=== PATIENT | male | born 1955 | race Caucasian/White ===

== ENCOUNTER 2023-01-17 12:03 | Observation (INO) | payer MEDICARE, BC, SELFPAY ==
--- NOTE | 2022-12-22 12:40 | CASEMGMT ---
Received tc from Cheri from 's office regarding pt upcoming surgery and that he would like to go to [facility]. She states does want pt to have therapy. She states pt has [place] [employer] insurance, she is aware he will need a precert. Updated SW.
[2023-01-11 09:42] LABS: Absolute Lymphocyte Count 2.25 X10^3/uL (0.83-4.51); Absolute Neutrophil Count 4.4 X10^3/uL (2.0-7.7); Basophil# 0.02 X10^3/uL; Basophil% 0.3 % (0-1); Eosinophil# 0.13 X10^3/uL; Eosinophils% 1.7 % (0-5); Hematocrit 42.9 % (40-54); Hemoglobin 14.1 g/dL (13.0-16.5); Lymphocyte # 2.25 X10^3/ul (0.83-4.51); Lymphocyte % 29.8 % (19-41); Mean Corp Hgb Conc 32.9 g/dL (32-36); Mean Corpuscular Hgb 29.3 pg (27.0-32.0); Mean Platelet Vol. 9.7 fl (6.2-12.0); Monocyte# 0.78 X10^3/uL; Monocyte% 10.3 % (0-10); NRBC Flagged by Analyzer 0 % (0-5); Neutrophil # 4.36 X10^3/uL (2.7-7.7); Neutrophil % 57.6 % (47-70); Platelet Count 251 K/mm3 (150-450); RBC Distribution Width CV 14.1 % (11.6-14.6); RBC Distribution Width SD 45.7 fl (35.1-43.9); Red Blood Count 4.82 M/mm3 (4.6-6.2); White Blood Count 7.6 K/mm3 (4.4-11.0)
[2023-01-11 10:01] LABS: Anion Gap 6 (5-15); BUN 25 mg/dL (7-18); Chloride 107 mmol/L (98-107); Creatinine, Serum 0.76 mg/dL (0.70-1.30); EST Glomerular Filtration Rate 109 mL/min (>60); Est Glom Filt Rate - Afr Amer 132 mL/min (>60); Glucose 94 mg/dL (74-106); Potassium 4.1 mmol/L (3.5-5.1); Sodium Level 139 mmol/L (136-145)
[2023-01-11 10:08] LABS: Magnesium 2.2 mg/dL (1.6-2.6)
[2023-01-11 10:41] LABS: HIV - WCH Non-Reactive (Nonreactive); Hepatitis B Surface Antibody Non-Reactive; Hepatitis C Antibody Non-Reactive (Nonreactive)
[2023-01-13 18:53] LABS: Hepatitis A AB, Total Negative (Negative)
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
[2023-01-17] VITALS (14 sets, daily range): BP systolic 105–139; BP diastolic 55–84; PULSE 67–81; RESP 16–20; TEMP 35.9–36.6; O2SAT 96–99; BMI 36.2
--- NOTE | 2023-01-17 06:30 | RAD_ITS ---
STUDY: X-RAY - LUMBAR SPINE REASON FOR EXAM: Male, 67 years old. LAMINECTOMY DECOMPRESSION L2-3,L3-4,L4-5 TECHNIQUE: 1 view(s) of the lumbar spine were obtained. COMPARISON: None FINDINGS: A single lateral view was obtained. The localization instrument is seen posterior to the L4-L5 disc space level. RAD/Spine 1 View Any Level IMPRESSION: The localization instrument is seen posterior to the L4-L5 disc space level. Electronically Signed: Zack Peña MD at 15:14 EST ,
[2023-01-17] MEDS: Magnesium 1 GM over 15 mins IV (06:38)
[2023-01-17] MEDS: Lactated Ringers 1,000 ML 15 ML IV (06:39)
[2023-01-17] MEDS: Acetaminophen 500 MG Tablet 1000 MG PO (06:40)
[2023-01-17 07:00] LABS: Bedside Glucose 83 mg/dL (74-106)
[2023-01-17] MEDS: Cefazolin 2 GM in 0.9% Normal Saline 100 ML IV (07:41)
[2023-01-17] MEDS: THROMBIN (RECOMBINANT) 20,000 UNIT VIAL 20000 UNIT TOPICAL ×2 (08:38→10:00)
--- NOTE | 2023-01-17 12:08 | PCM.OPRPT ---
Report of Operation Description of Surgical Findings:: Preoperative diagnosis: Severe spinal stenosis at L4-5, L3-4, and L2-3 Postoperative diagnosis: The same Procedure: #1 lumbar laminectomy decompression L4-5 CPT code 33979 #2 lumbar laminectomy decompression L3-4 CPT code 41491/51 #3 lumbar laminectomy decompression L2-3 CPT code 81609/51 Surgeon: Dr. Guy [employer] Supervisor: [facility] Anesthesia: General endotracheal administered by [facility] EBL: 400 cc Drains: Medium Hemovac Complications: None Procedure: Patient was taken to the OR where he was placed under general endotracheal anesthesia. A a Wheeler catheter was inserted. Neuro monitoring placed her leads on the patient. The patient was then placed on the prone position on the Josep frame. Care was taken to protect his bony prominences his genitalia the ulnar nerves at both elbows the brachial plexus bilaterally facial features and cervical spine. The back was then prepped and draped in standard fashion. I then made a longitudinal incision centered over the L4-5 area. Subcutaneous tissues were incised length of the skin incision. Note that he had a lot of adipose tissue between the skin and the lumbar fascia. I then opened the lumbar fascia to the left of the spinous processes of L4 and 5 and elevated them gently over the facet. An intraoperative x-ray was taken with a marker in place to confirm that we were indeed at L4-5 which we were. This was also confirmed by Dr. Finch one of our radiologist. This was marked I then extended the incision Sixes and a little bit southward. We continued elevating the paravertebral muscles off the lamina of L3 the lamina of L2 noted we had brisk bleeding throughout the procedure. We then opened the lumbar fascia to the right of the spinous processes and carried out the exact same thing elevated paravertebral muscles off the lamina of 4 the lamina of 3 and the lamina of L2. Self-retaining super slide retractors were put in place. Then remove some of the excessive soft tissues from around the lamina using double-action rongeurs and Mobile rongeurs. Bleeders were controlled with cautery and a lot of bleeding was controlled with bone wax. I then removed the spinous process of L4 followed by the spinous process of L3 and spinous process of L2 in order with double-action rongeurs. 4 5 I then thinned the lamina down with a double-action rongeurs release ligamentum flavum off the underside of the lamina of L4 and the laminectomy was carried out with 45 degree Kerrison rongeurs. We also perform medial facetectomies of course using the 45 degree Kerrison rongeurs the ligamentum flavum was then split in the middle and it was removed using quite a few bites with the 45 degree Kerrison rongeurs I removed all of the right side from the left and most of the left side from the left. We then moved up to the next level note at this level was very hard to find the actual opening as it was completely calcified over but we finally were able to find that I used an osteotome to remove some bone until I finally could find the lower edge of the L3 lamina. I released it with a small curettes starting with a small hole and enlarging and over time using 3 and 4 mm Kerrisons to perform the laminectomy all the way cephalad until we reached the end of the ligamentum flavum again the ligamentum flavum was split in the middle and it was removed by first releasing it off of the bottom that is the top edge of L for and then removing it with a double-action rongeurs carefully removing all of the right side 1 and removing part of the left 1. Then moved up to L3-4 and again same procedure was carried out identifying the ligamentum flavum releasing ligamentum flavum off the underside of the lamina of L2 and releasing it with the small bowl curettes. The laminectomy was carried out again with 45 degree Kerrison rongeurs and again the ligamentum flavum was removed with a 45 degree Kerrison rongeurs removing all of the right side and part of the left side. At this point I moved to the opposite side of the table to remove the left side ligamentum flavum at all 3 levels until the entire lateral recess was open. Foramina were checked which were all open on both sides. Note that we carried out thorough irrigation. We had brisk bleeding throughout the procedure losing about 400 cc. Against my instructions he apparently continue taking his aspirin through yesterday. We had good hemostasis and note that the bone bleeding was controlled with bone wax. Placed amniotic membranes directly over 3 all 3 laminectomy sites. Foam was placed over the top of that. A medium Hemovac drain was inserted. We then began closure. The lumbar fascia was reapproximated using #1 Vicryl in interrupted fashion for closure of the subcutaneous tissues in layers with both 0 Vicryl and 2-0 Vicryl in about 4 different layers. We then approximated the skin using skin clips. Sterile dressings were then applied. He was recovered in the OR he was moved to his hospital bed and taken to recovery in satisfactory condition. This the end of operative summary on Haim Jackson. This is Dr. Guy dictating.
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
[2023-01-17] MEDS: Cefazolin 1 GM/50 ML BAG IV ×2 (17:55→23:59)
[2023-01-17] MEDS: Morphine 4 MG/ML Syringe IV ×2 (18:14→20:33)
[2023-01-17] MEDS: 0.9% Saline Lock 10 ML Syringe IV ×2 (18:14→20:33)
[2023-01-17] MEDS: Gabapentin 300 MG Capsule PO (20:33)
--- NOTE | 2023-01-17 20:51 | CPS ---
Pt sleeping, IS and PEP left in room to be started in the AM.
[2023-01-18] VITALS (7 sets, daily range): BP systolic 105–132; BP diastolic 56–74; PULSE 77–104; RESP 14–18; TEMP 36.7–37.2; O2SAT 94–98; BMI 36.2
[2023-01-18] MEDS: 0.9% Saline Lock 10 ML Syringe IV ×2 (00:01→05:47)
[2023-01-18] MEDS: Morphine 4 MG/ML Syringe IV ×2 (00:02→05:47)
[2023-01-18 06:49] LABS: Absolute Lymphocyte Count 1.52 X10^3/uL (0.83-4.51); Absolute Neutrophil Count 6.1 X10^3/uL (2.0-7.7); Basophil# 0.02 X10^3/uL; Basophil% 0.2 % (0-1); Eosinophil# 0.08 X10^3/uL; Eosinophils% 0.9 % (0-5); Hematocrit 36.2 % (40-54); Lymphocyte # 1.52 X10^3/ul (0.83-4.51); Lymphocyte % 17.4 % (19-41); Mean Corp Hgb Conc 33.1 g/dL (32-36); Mean Corpuscular Hgb 29.7 pg (27.0-32.0); Mean Corpuscular Volume 89.6 fL (80-94); Mean Platelet Vol. 9.8 fl (6.2-12.0); Monocyte# 1.04 X10^3/uL; Monocyte% 11.9 % (0-10); NRBC Flagged by Analyzer 0 % (0-5); Neutrophil # 6.08 X10^3/uL (2.7-7.7); Neutrophil % 69.4 % (47-70); Platelet Count 201 K/mm3 (150-450); RBC Distribution Width CV 14.2 % (11.6-14.6); RBC Distribution Width SD 46.8 fl (35.1-43.9); Red Blood Count 4.04 M/mm3 (4.6-6.2); White Blood Count 8.8 K/mm3 (4.4-11.0)
[2023-01-18 07:09] LABS: Anion Gap 5 (5-15); BUN 16 mg/dL (7-18); BUN/Creat Ratio 22.7 RATIO (10-20); Calcium,Total 8.4 mg/dL (8.5-10.1); Chloride 105 mmol/L (98-107); EST Glomerular Filtration Rate 119 mL/min (>60); Est Glom Filt Rate - Afr Amer 144 mL/min (>60); Estimated Creatinine Clearance 72.66 ml/min; Glucose 114 mg/dL (74-106); Potassium 3.8 mmol/L (3.5-5.1); Sodium Level 138 mmol/L (136-145)
[2023-01-18] MEDS: Ensure Surgery 237 ML LIQUID PO ×3 (09:16→17:15)
[2023-01-18] MEDS: Gabapentin 300 MG Capsule PO ×2 (09:16→21:25)
[2023-01-18] MEDS: oxyCODONE 5 MG Tablet PO ×3 (09:16→21:25)
--- NOTE | 2023-01-18 10:47 | PN.HOSP_ITS ---
Reason for Visit Reason for Visit: Diagnoses Spinal stenosis, lumbar region without neurogenic claudication (01/17/23) Anesthesia of skin (01/17/23) Encounter for other preprocedural examination (01/17/23) Subjective Subjective Patient seen and examined. His pain was fairly well controlled. He had been able to ambulate with physical therapy. Review of systems otherwise negative. He has remained hemodynamically stable. Objective Data Objective Data Vital Signs: Vital Signs Temp Pulse Resp BP Pulse Ox O2 Del Method O2 Flow Rate 98.8 F 86 14 121/74 H 97 Room Air 4 01/18/23 09:16 01/18/23 09:16 01/18/23 09:16 01/18/23 09:16 01/18/23 09:16 01/18/23 09:16 01/17/23 13:15 Oxygen Flow Rate (L/min) 4 Oxygen Delivery Method Room Air Weight: 245 lb 5.992 oz Body Mass Index (BMI) 36.2 Intake & Output: Intake and Output for Last 24 Hours 01/16/23 01/17/23 01/18/23 23:59 23:59 23:59 Intake Total 262 / 262 420.5 / 420.5 Output Total 1190 / 1190 310 / 310 Balance -928 / -928 110.5 / 110.5 Lab / Micro Data Result Diagrams: 01/18/23 06:25 01/18/23 06:25 Labs: Laboratory Results - last 24 hr 01/18/23 06:25: WBC 8.8, RBC 4.04 L, Hgb 12.0 L, Hct 36.2 L, MCV 89.6, MCH 29.7, MCHC 33.1, RDW Std Deviation 46.8 H, RDW Coeff of Kaylene 14.2, Plt Count 201, MPV 9.8, Immature Gran % (Auto) 0.200, Neut % (Auto) 69.4, Lymph % (Auto) 17.4 L, [place] % (Auto) 11.9 H, Eos % (Auto) 0.9, Baso % (Auto) 0.2, Absolute Neuts (auto) 6.1, Absolute Lymphs (auto) 1.52, Nucleated RBC % 0 01/18/23 06:25: Sodium 138, Potassium 3.8, Chloride 105, Carbon Dioxide 28.0, Anion Gap 5, BUN 16, Creatinine 0.70, Estim Creat Clear Calc 72.66, Est GFR (MDRD) Af Amer 144, Est GFR (MDRD) Non-Af 119, BUN/Creatinine Ratio 22.7 H, Glucose 114 H, Calcium 8.4 L Micro: Microbiology 01/11/23 09:20 Swab (Method) Nasal Screen MRSA/MSSA - Final Radiography Diagnostic Testing: Radiology Impression Spine X-Ray 01/17/23 06:30 IMPRESSION: The localization instrument is seen posterior to the L4-L5 disc space level. Electronically Signed: Zack Peña MD at 15:14 EST , Physical Exam Const alert, oriented x3 and no apparent distress HEENT head/scalp atraumatic, moist oral mucous membranes and oropharynx normal Head and Scalp: normocephalic Mouth: oral and palatal mucosa normal Eyes PERRL, EOMs intact bilaterally and conjunctivae normal Neck no lymphadenopathy, supple and no JVD Resp normal respiratory effort, no retractions, no use of accessory muscles and clear to auscultation bilaterally Cardio regular rate, regular rhythm, S1 normal heart sound, S2 normal heart sound and no murmurs GI normal to inspection, nondistended, normoactive bowel sounds, soft to palpation, non-tender and non-distended Extremity normal to inspection, full ROM and no clubbing, cyanosis or edema Skin Skin Narrative: intact dressing over surgical site on lower back Neuro oriented x3, CN's II-XII intact bilaterally, moves all extremities and no focal motor deficits Sensorium / Orientation: awake and alert Motor Exam: strength 5/5 throughout Psych affect normal Assessment & Plan Assessment/Plan (1) Spinal stenosis at L4-L5 level: PLAN: Plan #Spinal stenosis s/o lumbar laminectomy of L2-3, L3-4 and L4-5 * today is POD 1 * managment as per primary service spine surgery * incentive spirometry * pain meds as per primary service * PT/OT on board * fall precautions * #Hypertension * currently controlled. NOt on any BP meds. * IV hydralazine prn * DVT prophylaxis: bilateral SCDs as per primary team total time spent on seeing patient [id number], reviewing chart and labs, discussion of plan with nursing and ancillary staff, evaluation and management and documentation: 30 minutes. Charges/Coding Visit Charges Inpatient E&M: 44166 Subs Hosp L2
--- NOTE | 2023-01-18 11:50 | CASEMGMT ---
RN?CM?RELIEF DOCKING MASTER?CM?to room to meet with patient for initial transition planning/care coordination?assessment.?RN?CM?introduced self and role at [facility].? Pt voices understanding and consents to?assessment?at this time.? Pt resting in bed in no distress at this time.? Pt is A/O at this time and answers all questions appropriately.?? Care providers, pharmacy, and demographics verified/updated at this time. PCP: Agustina Danielle NP, @ [facility] Specialists: Dr Guy-saurav Preferred Pharmacy: [facility] Retail Insurance: Estefany SÁNCHEZ Prescription Benefit:?Yes Living Will/HPOA:?Has both LW and HCPOA, who is his . LNOK: , Mireya Living Arrangements: Lives w/his in 2-story home w/3 steps to enter. FFSU. Indep @ baseline. can assist, if needed. Transportation:?Pt states drives self and states no transportation concerns at this time.? also drives. DME: ?States has the following DME:?shower chair, lift chair. Also has cane and 2 walkers available, but does not use @ baseline. ? Pt states no need for further DME at this time.? HHC/SNF: Hx of both SNF and HHC, but does not remember names. PT eval notes reviewed. No additional therapy recommended. Pt to follow walking program per Dr Guy. Pt wishes to return home and states has no concerns with going home at time of discharge.? CM?to follow for any discharge planning/needs.? Pt voices no further concerns/needs at this time.? Advised pt to ask for?CM?if any further questions/concerns/needs arise.? Voices understanding. PLAN:??Home Rani DALALN?RN?CM
[2023-01-18] MEDS: diazePAM 5 MG Tablet PO ×2 (12:59→21:25)
--- NOTE | 2023-01-18 13:15 | PCM.PN.ORT ---
Subjective Subjective Mr. Jackson is seen on rounds. He reports that he is doing actually quite well other than some back pain. When he walked today his leg pain was much better. He has not had a lot of drainage into his Hemovac however because he did lose 400 cc and his hemoglobin is down to 12 from 14 something we will keep the drain in 1 more day. However I am very pleased with his progress. I suspect he will be ready to go home tomorrow. Objective Data Objective Data Vital Signs: Vital Signs Temp Pulse Resp BP Pulse Ox O2 Del Method O2 Flow Rate 98.8 F 86 14 121/74 H 97 Room Air 4 01/18/23 09:16 01/18/23 09:16 01/18/23 09:16 01/18/23 09:16 01/18/23 09:16 01/18/23 09:16 01/17/23 13:15 Oxygen Flow Rate (L/min) 4 Oxygen Delivery Method Room Air Weight: 245 lb 5.992 oz Body Mass Index (BMI) 36.2 Intake & Output: Intake and Output for Last 24 Hours 01/16/23 01/17/23 01/18/23 23:59 23:59 23:59 Intake Total 262 / 262 420.5 / 420.5 Output Total 1190 / 1190 310 / 310 Balance -928 / -928 110.5 / 110.5 Lab / Micro Data Result Diagrams: 01/18/23 06:25 01/18/23 06:25 Labs: Laboratory Results - last 24 hr 01/18/23 06:25: WBC 8.8, RBC 4.04 L, Hgb 12.0 L, Hct 36.2 L, MCV 89.6, MCH 29.7, MCHC 33.1, RDW Std Deviation 46.8 H, RDW Coeff of Kaylene 14.2, Plt Count 201, MPV 9.8, Immature Gran % (Auto) 0.200, Neut % (Auto) 69.4, Lymph % (Auto) 17.4 L, [place] % (Auto) 11.9 H, Eos % (Auto) 0.9, Baso % (Auto) 0.2, Absolute Neuts (auto) 6.1, Absolute Lymphs (auto) 1.52, Nucleated RBC % 0 01/18/23 06:25: Sodium 138, Potassium 3.8, Chloride 105, Carbon Dioxide 28.0, Anion Gap 5, BUN 16, Creatinine 0.70, Estim Creat Clear Calc 72.66, Est GFR (MDRD) Af Amer 144, Est GFR (MDRD) Non-Af 119, BUN/Creatinine Ratio 22.7 H, Glucose 114 H, Calcium 8.4 L Micro: Microbiology 01/11/23 09:20 Swab (Method) Nasal Screen MRSA/MSSA - Final Radiography Diagnostic Testing: Radiology Impression Spine X-Ray 01/17/23 06:30 IMPRESSION: The localization instrument is seen posterior to the L4-L5 disc space level. Electronically Signed: Zack Peña MD at 15:14 EST ,
--- NOTE | 2023-01-18 15:30 | CASEMGMT ---
RYANNE CM in to discuss DANIEL form with patient. RN CM explained DANIEL form, patient voiced understanding. Pt signed form and filed in chart. Pt provided with a copy of signed DANIEL form. Patient had no further questions or concerns at this time.
[2023-01-19 06:00] VITALS: BP 128/69; PULSE 93; RESP 16; TEMP 37; O2SAT 95
[2023-01-19 08:10] VITALS: BP 124/68; PULSE 94; RESP 18; TEMP 36.8; O2SAT 95
[2023-01-19] MEDS: oxyCODONE 5 MG Tablet PO ×2 (08:17→12:23)
[2023-01-19] MEDS: Gabapentin 300 MG Capsule PO (08:17)
[2023-01-19] MEDS: diazePAM 5 MG Tablet PO (08:17)
[2023-01-19 08:44] VITALS: O2SAT 97
--- NOTE | 2023-01-19 11:15 | PN.HOSP_ITS ---
Reason for Visit Reason for Visit: Diagnoses Spinal stenosis, lumbar region without neurogenic claudication (01/17/23) Anesthesia of skin (01/17/23) Encounter for other preprocedural examination (01/17/23) Subjective Subjective Patient seen and examined. He still does complain of some back pain. He has no other complaints and denies any chest pain, shortness of breath, palpitations, dizziness, nausea vomiting or diarrhea. Review of systems otherwise negative. Objective Data Objective Data Vital Signs: Vital Signs Temp Pulse Resp BP Pulse Ox O2 Del Method O2 Flow Rate 98.2 F 94 18 124/68 H 97 Room Air 4 01/19/23 08:10 01/19/23 08:10 01/19/23 08:10 01/19/23 08:10 01/19/23 08:44 01/19/23 08:44 01/17/23 13:15 Oxygen Flow Rate (L/min) 4 Oxygen Delivery Method Room Air Weight: 245 lb 5.992 oz Body Mass Index (BMI) 36.2 Intake & Output: Intake and Output for Last 24 Hours 01/17/23 01/18/23 01/19/23 23:59 23:59 23:59 Intake Total 262 / 262 420.5 / 420.5 Output Total 1190 / 1190 852 / 852 600 / 600 Balance -928 / -928 -431.5 / -431.5 -600 / -600 Lab / Micro Data Result Diagrams: 01/18/23 06:25 01/18/23 06:25 Micro: Microbiology 01/11/23 09:20 Swab (Method) Nasal Screen MRSA/MSSA - Final Physical Exam Const alert, oriented x3 and no apparent distress HEENT head/scalp atraumatic, moist oral mucous membranes and oropharynx normal Head and Scalp: normocephalic Mouth: oral and palatal mucosa normal Eyes PERRL, EOMs intact bilaterally and conjunctivae normal Neck no lymphadenopathy, supple and no JVD Resp normal respiratory effort, no retractions, no use of accessory muscles and clear to auscultation bilaterally Cardio regular rate, regular rhythm, S1 normal heart sound, S2 normal heart sound and no murmurs GI normal to inspection, nondistended, normoactive bowel sounds, soft to palpation, non-tender and non-distended Extremity normal to inspection, full ROM and no clubbing, cyanosis or edema Skin Skin Narrative: intact dressing over surgical site on lower back Neuro oriented x3, CN's II-XII intact bilaterally, moves all extremities and no focal motor deficits Sensorium / Orientation: awake and alert Motor Exam: strength 5/5 throughout Psych affect normal Assessment & Plan Assessment/Plan (1) Spinal stenosis at L4-L5 level: PLAN: Plan #Spinal stenosis s/o lumbar laminectomy of L2-3, L3-4 and L4-5 * today is POD 2 * managment as per primary service spine surgery * incentive spirometry * pain meds as per primary service * PT/OT on board * fall precautions * #Hypertension * currently controlled. BP has been quite well controlled. * Not on any BP meds. * IV hydralazine prn * DVT prophylaxis: bilateral SCDs as per primary team Total time spent on seeing patient [id number], reviewing chart and labs, discussion of plan with nursing and ancillary staff, evaluation and management and documentation: 28 minutes. Charges/Coding Visit Charges Inpatient E&M: 18691 Subs Hosp L2
--- NOTE | 2023-01-19 13:13 | PCM.DC ---
Discharge Instructions Activity May shower in (days): 4 May resume sexual activity in: 4-6 weeks Weight Bearing Status: Full weight bearing Lifting Restrictions: 15# Follow Up Care Test Results: Test results from this visit will be discussed in further detail at your follow-up appointment, if applicable. Discharge Plan Admission Admit Date/Time: 01/17/23 12:03 Primary Reason for Your Visit: back surgery Attending Provider: Mekhi Guy Primary Care Provider: Agustina Danielle Consulting Providers: Radha Perrin Discharge Orders/Prescriptions Prescriptions: No Action gabapentin 300 mg capsule 300 mg PO BID aspirin 81 mg tablet,chewable 81 mg PO DAILY multivitamin Tablet 1 tab PO DAILY acetaminophen [Tylenol] 325 mg Tablet 500 mg PO PRN PRN (Reason: Pain) Referrals / Follow Up: Agustina Danielle, [employer] MA[employer]GER[employer] [Primary Care Provider] - Disposition Disposition (needs filled in before D/C Order can be placed): Home, Self Care
--- NOTE | 2023-01-19 13:15 | DS.PCM_ITS ---
Providers Date of Admission: 01/17/23 Primary Care Physician: JOANN MtzC Attending Physician: This patient was admitted 2 days ago at which time he underwent lumbar laminectomy at 3 levels at L2-3, L3-4, and L4-5. He tolerated the procedures well. Today the dressing was changed and the drain was removed. Incision is dry and healing well. Neurologically he is intact. He was given postop protocol regarding his activities over the next several weeks. He already has an appointment to see me in a couple of weeks. We will remove the skin clips at that time. He was told that the dressing can be removed on Monday 4 days from now and he can take showers 5 days from now that is the next day. We will use the Hibiclens that he had preop. I also will give him oxycodone 7.5 with acetaminophen 325's for pain. This is the end of discharge summary on Haim Jackson. This is Dr. Guy dictating. Consultations 01/17/23 12:56 Consult: Hospitalist Routine Consulting Provider: Mahamed Coronel Reason for Consult: Medical Management EMERGENT Consult: No MD Notified: Yes Date Notified: 01/17/23 Time Notified: 17:01 Method of Notification: Text Reason For Visit: LUMAR LAMI Diagnosis Discharge Diagnosis (1) Spinal stenosis at L4-L5 level: Status: Acute Code(s): M48.061 - Spinal stenosis, lumbar region without neurogenic claudication Medications at Discharge Home Medications aspirin 81 mg chewable tablet 81 mg PO DAILY 12/08/22 gabapentin 300 mg capsule 300 mg PO BID 12/08/22 multivitamin 1 tab PO DAILY 12/08/22 acetaminophen 325 mg tablet (Tylenol) 500 mg PO PRN PRN Pain 01/17/23 Weight / BMI Weight Weight: 245 lb 5.992 oz Body Mass Index (BMI) 36.2 ABG / Lab / Microbiology Data Result Diagrams: 01/18/23 06:25 01/18/23 06:25 Microbiology: Microbiology 01/11/23 09:20 Swab (Method) Nasal Screen MRSA/MSSA - Final D/C Instructions May shower in (days): 4 May resume sexual activity in: 4-6 weeks Weight Bearing Status: Full weight bearing Meaningful Use Info Meaningful Use Diagnoses (Choose all that apply): None applicable Discharge Plan Admission Admit Date/Time: 01/17/23 12:03 Primary Reason for Your Visit: back surgery Attending Provider: Mekhi Guy Primary Care Provider: Agustina Danielle Consulting Providers: Radha Perrin Discharge Orders/Prescriptions Prescriptions: No Action gabapentin 300 mg capsule 300 mg PO BID aspirin 81 mg tablet,chewable 81 mg PO DAILY multivitamin Tablet 1 tab PO DAILY acetaminophen [Tylenol] 325 mg Tablet 500 mg PO PRN PRN (Reason: Pain) Referrals / Follow Up: Agustina Danielle, [employer]ATOR[employer] [Primary Care Provider] - Disposition Disposition (needs filled in before D/C Order can be placed): Home, Self Care
--- NOTE | 2023-01-19 13:19 | CASEMGMT ---
RYANNE BOWEN made aware pt has concerns about going home. Spoke with who states that pt will dc today. RYANNE BOWEN in to pt room, pt states he is more painful today. He states he can manage to go home. Discussed keeping up with his pain and not letting it get too far ahead of him. Pt and deny further needs.
[2023-01-19 13:53] VITALS: BP 119/68; PULSE 92; RESP 18; TEMP 37.6; O2SAT 95
== END 2023-01-19 14:30 | disposition home or self-care (01) ==
LOC: SDC 15:59 → MS3 15:59
PROVIDERS: Anesthesiology; Internal Medicine; Admitting Provider Orthopaedic Surgery; PCP Nurse Practitioner Family; Referring Provider Orthopaedic Surgery; Visit Provider Orthopaedic Surgery
PROC: (CPT 63030; principal; 2023-01-17 07:00)
DX: M48.061 Spinal stenosis, lumbar region without neurogenic claudication (principal); R20.0 Anesthesia of skin; I44.30 Unspecified atrioventricular block; I10 Essential (primary) hypertension; Z79.82 Long term (current) use of aspirin; Z79.899 Other long term (current) drug therapy; R26.89 Other abnormalities of gait and mobility
CPT/HCPCS: 63047; 63048 ×2; 00630; 36415; 72020; 80048; 82962; 83735; 85025; 86703; 86706; 86708; 86803; 87081; 93005; 94668; 96374; 96376; 97162; 97530; 99221; J7120; A4216; G0378; J0330; J2405; J3475